=== PATIENT | male | born 1970 | race Caucasian/White ===

== ENCOUNTER 2020-11-03 13:05 | Observation (INO) | payer OTHER, MEDICAID, SELFPAY ==
[2020-11-03] VITALS (15 sets, daily range): BP systolic 138–191; BP diastolic 73–93; PULSE 74–113; RESP 13–22; TEMP 36.2–36.5; O2SAT 93–100; BMI 38.0
[2020-11-03 16:14] LABS: Add Manual Diff / Slide Review NO; Basophils Absolute Auto 100 /uL (0-100); Basophils Percent Auto 0.5 % (0-2); Eosinophils Absolute Auto 300 /uL (0-450); Eosinophils Percent Auto 2.8 % (2-4); Hematocrit 41.4 % (41-53); Hemoglobin 13.4 g/dL (13.5-17.5); Lymphocytes Absolute Auto 1600 /uL (1100-4500); Mean Corpuscular HGB Conc 32.4 % (30-36); Mean Corpuscular Hemoglobin 27.4 PG (26-34); Mean Corpuscular Volume 84.6 fL (80-100); Monocytes Absolute Auto 1000 /uL (0-900); Monocytes Percent Auto 8.2 % (3-14); Neutrophils Absolute Auto 8700 /uL (1500-7000); Neutrophils Percent Auto 74.5 % (50-75); Platelet Count 457 X10^3/uL (150-400); Red Blood Cell Count 4.89 X10^6/uL (4.5-5.9); Red Cell Distribution Width 12.7 % (11.6-14.8); White Blood Cell Count 11.7 X10^3/uL (4.5-11.0)
[2020-11-03 16:15] LABS: Lactate (Lactic Acid) 1.2 mmol/L (0.7-2.1)
[2020-11-03 16:17] LABS: Alanine Aminotransferase 78 IU/L (<50); Alkaline Phosphatase 297 U/L (38-126); Aspartate Aminotransferase 68 IU/L (17-59); BUN Creatinine Ratio 13.6 (6-22); Bilirubin Total 1.4 mg/dL (0.2-1.3); Blood Urea Nitrogen 14 mg/dL (9-20); Calcium 9.3 mg/dL (8.4-10.2); Carbon Dioxide 29 mmol/L (22-32); Chloride 105 mmol/L (98-107); Creatine Kinase 42 U/L (55-170); Estimated Glomerular Filt Rate > 60.0 mL/min (>60); Globulin 4.2 g/dL (1.7-4.1); Glucose 132 mg/dL (70-100); HEMOLYSIS < 15 (0-50); Potassium 4.3 mmol/L (3.4-5.1); Sodium 140 mmol/L (137-145); Total Protein 8.2 g/dL (6.3-8.2)
[2020-11-03 16:28] LABS: Troponin I < 0.012 ng/mL (0.01-0.034)
[2020-11-03 16:33] LABS: Procalcitonin 0.09 ng/mL (<0.5)
--- NOTE | 2020-11-03 18:16 | ED_ITS ---
HPI - Skin/Abscess/Foreign Bdy General Chief complaint: Skin/Abscess/Foreign Body Stated complaint: infection in leg Time Seen by Provider: 11/03/20 16:56 Source: patient Mode of arrival: Ambulatory Limitations: no limitations History of Present Illness HPI narrative: Patient is a 50-year-old male. Denies any prior medical issues. No prior surgeries. Is not taking any medications here for evaluation of what he states is a infection of his right leg. He states that all of the symptoms started approximately 1 month ago when he scraped the front of his right leg on some stairs while he was at work. Since that time he has had some redness in the area but he it has worsened recently and specifically over the past week. No fevers. He has not seen anybody about the symptoms prior to this. Related Data Home Medications Medication Instructions Recorded Confirmed No Known Home Medications 11/03/20 11/03/20 Allergies Allergy/AdvReac Type Severity Reaction Status Date / Time No Known Drug Allergies Allergy Verified 11/03/20 13:18 Review of Systems Constitutional Comments: Denies fevers Cardiovascular Cardiovascular: Reports system reviewed and no additional complaints, except as documented Respiratory Respiratory: Reports system reviewed and no additional complaints, except as documented Gastrointestinal Gastrointestinal: Reports system reviewed and no additional complaints, except as documented Genitourinary Genitourinary: Reports system reviewed and no additional complaints, except as documented Musculoskeletal Comments: Pain and right leg Integumentary/Breasts Comments: Redness drainage and swelling to right leg Neurologic Neurologic: Reports system reviewed and no additional complaints, except as documented Hematologic/Lymphatic On Anticoagulants: No Allergic/Immunologic Allergic/Immunologic: Reports system reviewed and no additional complaints, except as documented Patient History Medical History Hx of fracture of right hip Family History Mother Myocardial infarction Father Patient denies significant medical history Social History household members: family Smoking Status: Never smoker Smoking Status: Unknown if ever smoked alcohol intake frequency: holidays/special occasions only Substance Use Type: does not use Exam Initial Vital Signs Initial Vital Signs: Vital Signs Temperature 97.2 F L 11/03/20 13:18 Pulse Rate 113 H 11/03/20 13:18 Respiratory Rate 16 07/24/21 13:18 Blood Pressure 140/93 H 11/03/20 13:18 Pulse Oximetry 98 11/03/20 13:18 Const General: cooperative HENMT Head: normal to inspection and normocephalic Eyes General: appearance normal, both eyes and all related structures Resp Effort & Inspection: normal respiratory effort Cardio Rate: tachycardic Pulses: dorsalis pedis present on the right GI Inspection: normal to inspection Skin Other: Patient with redness to his right lower extremity from his knees down to his toes. Also has some ulcerations circumferentially. Does appear to be draining purulent material. He does have redness that streaks up the inside of his leg proximal to the knee. Neuro General: patient alert, patient awake, patient oriented x3 and moves all extremities Extrem General: normal to inspection and capillary refill normal Psych Appearance: grossly normal Course Orders Ordered: ED Orders 11/03/20 16:10 EKG-12 Lead Stat 11/03/20 16:35 Blood Culture Stat 11/03/20 18:18 XR tibia fibula RT 2V Stat 11/03/20 18:27 COVID19 - ADMIT ([employer] swab/PCR) Stat 11/03/20 19:37 CT LE RT w con Stat Acetaminophen (Acetaminophen 325 Mg Tablet) 650 mg PO Q6HR PRN PRN Reason: Fever/Mild Pain (1-3) Enoxaparin Sodium (Enoxaparin 40 Mg/0.4 Ml Syringe) 40 mg SUBCUT DAILY [facility] Sodium Chloride (Normal Saline 0.9%) 1,000 mls @ 125 mls/hr IV CONT [facility] Last Infusion: 11/03/20 20:53 Dose: 125 mls/hr Documented by: Infusion: 11/03/20 20:03 Dose: 0 mls/hr Documented by: Admin: 11/03/20 18:25 Dose: 125 mls/hr Documented by: MICHAEL Ampicillin Sodium/Sulbactam (Sodium 3 gm/ Sodium Chloride) 100 mls @ 100 mls/hr IV Q6H [facility] Last Admin: 11/04/20 00:29 Dose: 100 mls/hr Documented by: DEEPTHI Vancomycin HCl/Dextrose (Vancomycin) 2,000 mg in 400 mls @ 200 mls/hr IV Q12H [facility] Naloxone HCl (Naloxone 0.4 Mg/Ml Vial) 0.2 mg IV Q2MIN PRN PRN Reason: Opiate Reversal Ondansetron HCl (Ondansetron 4 Mg/2 Ml Inj) 4 mg IV Q8HR PRN PRN Reason: Nausea And Vomiting Vancomycin HCl (Vancomycin Per Pharmacy) 1 request MISC NOW ONE Stop: 11/03/20 23:49 Discontinued Medications Ceftriaxone Sodium 1,000 mg/ (Sodium Chloride) 100 mls @ 200 mls/hr IV NOW ONE Stop: 11/03/20 18:18 Last Infusion: 11/03/20 19:20 Dose: 0 mls/hr Documented by: Admin: 11/03/20 18:25 Dose: 200 mls/hr Documented by: MICHAEL Vancomycin HCl (Vancomycin) 1,000 mg in 200 mls @ 200 mls/hr IV NOW ONE Stop: 11/03/20 19:16 Last Admin: 11/03/20 22:26 Dose: Not Given Documented by: ARASELI Vancomycin HCl/Dextrose (Vancomycin) 2,000 mg in 400 mls @ 200 mls/hr IV NOW ONE Stop: 11/03/20 20:29 Last Infusion: 11/03/20 22:23 Dose: 200 mls/hr Documented by: Infusion: 11/03/20 20:53 Dose: 200 mls/hr Documented by: Infusion: 11/03/20 20:04 Dose: 0 mls/hr Documented by: Admin: 11/03/20 19:27 Dose: 200 mls/hr Documented by: VICK Vital Signs Vital signs: Vital Signs - 8 hr 11/03/20 17:30 11/03/20 17:59 11/03/20 18:00 Pulse Rate 77 99 H 94 H Respiratory Rate 21 13 14 Blood Pressure 138/77 140/74 Pulse Oximetry 97 99 99 11/03/20 18:30 11/03/20 19:00 11/03/20 19:30 Pulse Rate 91 H 88 89 Respiratory Rate 18 18 15 Blood Pressure 150/73 H 165/92 H 148/76 H Pulse Oximetry 99 98 97 MDM - Skin/Abscess/Foreign Bdy Lab Data Attestation: I reviewed the patient's lab results. Result diagrams: 11/03/20 15:53 11/03/20 15:53 Labs: Lab Results 11/03/20 11/03/20 11/03/20 Range/Units 15:53 15:53 15:53 WBC 11.7 H (4.5-11.0) X10^3/uL RBC 4.89 (4.5-5.9) X10^6/uL Hgb 13.4 L (13.5-17.5) g/dL Hct 41.4 (41-53) % MCV 84.6 (80-100) fL MCH 27.4 (26-34) PG MCHC 32.4 (30-36) % RDW 12.7 (11.6-14.8) % Plt Count 457 H (150-400) X10^3/uL Neut % (Auto) 74.5 (50-75) % Lymph % (Auto) 14.0 L (25-40) % [place] % (Auto) 8.2 (3-14) % Eos % (Auto) 2.8 (2-4) % Baso % (Auto) 0.5 (0-2) % Neut # (Auto) 8700 H (4156-2365) /uL Lymph # (Auto) 1600 (6947-1122) /uL [place] # (Auto) 1000 H (0-900) /uL Eos # (Auto) 300 (0-450) /uL Baso # (Auto) 100 (0-100) /uL Sodium 140 (137-145) mmol/L Potassium 4.3 (3.4-5.1) mmol/L Chloride 105 (98-107) mmol/L Carbon Dioxide 29 (22-32) mmol/L BUN 14 (9-20) mg/dL Creatinine 1.03 (0.66-1.25) mg/dL Estimated GFR > 60.0 (>60) mL/min BUN/Creatinine Ratio 13.6 (6-22) Glucose 132 H (70-100) mg/dL Hemoglobin A1c (4.0-6.0) % Lactate 1.2 (0.7-2.1) mmol/L Calcium 9.3 (8.4-10.2) mg/dL Total Bilirubin 1.4 H (0.2-1.3) mg/dL AST 68 H (17-59) IU/L ALT 78 H (<50) IU/L Alkaline Phosphatase 297 H (38-126) U/L Total Creatine Kinase 42 L (55-170) U/L CK-MB (CK-2) TNP CK-MB (CK-2) Rel Index TNP Troponin I < 0.012 (0.01-0.034) ng/mL Total Protein 8.2 (6.3-8.2) g/dL Albumin 4.0 (3.5-5.0) g/dL Globulin 4.2 H (1.7-4.1) g/dL Albumin/Globulin Ratio 1.0 (1.0-2.8) Procalcitonin 0.09 (<0.5) ng/mL SARS-CoV-2 (PCR) (Negative) 11/03/20 11/03/20 Range/Units 15:53 18:27 WBC (4.5-11.0) X10^3/uL RBC (4.5-5.9) X10^6/uL Hgb (13.5-17.5) g/dL Hct (41-53) % MCV (80-100) fL MCH (26-34) PG MCHC (30-36) % RDW (11.6-14.8) % Plt Count (150-400) X10^3/uL Neut % (Auto) (50-75) % Lymph % (Auto) (25-40) % [place] % (Auto) (3-14) % Eos % (Auto) (2-4) % Baso % (Auto) (0-2) % Neut # (Auto) (6004-4311) /uL Lymph # (Auto) (5819-5629) /uL [place] # (Auto) (0-900) /uL Eos # (Auto) (0-450) /uL Baso # (Auto) (0-100) /uL Sodium (137-145) mmol/L Potassium (3.4-5.1) mmol/L Chloride (98-107) mmol/L Carbon Dioxide (22-32) mmol/L BUN (9-20) mg/dL Creatinine (0.66-1.25) mg/dL Estimated GFR (>60) mL/min BUN/Creatinine Ratio (6-22) Glucose (70-100) mg/dL Hemoglobin A1c 5.6 (4.0-6.0) % Lactate (0.7-2.1) mmol/L Calcium (8.4-10.2) mg/dL Total Bilirubin (0.2-1.3) mg/dL AST (17-59) IU/L ALT (<50) IU/L Alkaline Phosphatase (38-126) U/L Total Creatine Kinase (55-170) U/L CK-MB (CK-2) CK-MB (CK-2) Rel Index Troponin I (0.01-0.034) ng/mL Total Protein (6.3-8.2) g/dL Albumin (3.5-5.0) g/dL Globulin (1.7-4.1) g/dL Albumin/Globulin Ratio (1.0-2.8) Procalcitonin (<0.5) ng/mL SARS-CoV-2 (PCR) Negative (Negative) Imaging Data CT LE: Radiologist's Impression: [address] [id number] Scan ReportSigned Patient: Jeffery José#: [id number]: 1970Acct:[id number]/Sex: 50 / MDate of Service: 11/03/20Loc: [id number] Number: [id number] Procedure: CT LE RT w con Ordering Provider: Jose Antonio Maldonado D.O. PROCEDURE: CT LE RT W CON INDICATIONS: cellulitis R distal LE eval for deep abscess TECHNIQUE: After the administration of intravenous contrast, axial sections acquired of the right leg, with coronal and sagittal reformats. COMPARISON: [facility], CR, XR TIBIA FIBULA RT 2V, 11/03/2020, 18:23. FINDINGS: Image quality: Excellent. Bones: No acute fracture or dislocation. No periosteal reaction seen. No suspicious osseous lesion. Small ossicles adjacent to the medial malleolus likely due to prior injury. Soft tissues: There is diffuse subcutaneous edema in the right leg. No soft tissue gas. No loculated fluid collection. Small suprapatellar joint effusion. IMPRESSION: No abscess. No soft tissue gas. Diffuse subcutaneous edema in the right leg. No acute osseous abnormality. Dictated by: Kamar Claudio M.D. on 11/03/2020 at 20:49 Approved by: Kamar Claudio M.D. on 11/03/2020 at 20:54 Extremity x-ray #1: Radiologist's Impression: [address] [id number] ReportSigned Patient: Jeffery José#: [id number]: 1970Acct:[id number]/Sex: 50 / MDate of Service: 11/03/20Loc: EDAccession Number: [id number] Procedure: XR tibia fibula RT 2V Ordering Provider: Jose Antonio Maldonado D.O. PROCEDURE: XR TIBIA FUBULA RT 2V INDICATIONS: cellulitis eval for free air TECHNIQUE: 4 views of the tibia and fibula were acquired. COMPARISON: None. FINDINGS: Bones: No fractures or dislocations. No periosteal reaction. Question of prior injury at the medial malleolus. No suspicious bony lesions. Soft tissues: No suspicious soft tissue calcifications or masses. No soft tissue gas is seen. Heterogeneous appearance of the calf soft tissues. IMPRESSION: No soft tissue air is seen. Heterogeneous appearance of the calf soft tissues likely due to edema. Dictated by: Kamar Claudio M.D. on 11/03/2020 at 19:37 Approved by: Kamar Claudio M.D. on 11/03/2020 at 19:39 ECG Data Attestation: I personally reviewed and interpreted this ECG as follows: Interpretation: Sinus rhythm Ventricular rate 92 Normal axis Normal QRS Normal QTC No ST T wave changes MDM Narrative Medical decision making narrative: Patient does have what appears to be cellu litis and superficial ulcerations to his right lower extremity from his knees down to his toes. He is neurovascularly intact. X-ray does not show any signs of free air. CT scan was ordered per request admitting provider. Does not show any deep abscess. He does have streaking on the inside of his leg. Patient was given antibiotics in the emergency department. Blood cultures were obtained. G jorien his presentation he does require admission to the hospital for IV antibiotics. Discussed the case with ADRIAN mack the [facility] provider who will admit for further evaluation and treatment. I did discuss the need for admission with the patient he expressed understanding and agreement. Discharge Plan Departure Patient Disposition: Admitted As Inpatient Clinical Impression: Cellulitis Admit Date/Time: 11/03/20 19:45 Admit Provider: Melba Mack
[2020-11-03] MEDS: cefTRIAXone 1,000 MG in SODIUM CHLORIDE 0.9% 100 ML 200 ML IV (18:25)
[2020-11-03] MEDS: SODIUM CHLORIDE 0.9% 1,000 ML 125 ML IV (18:25)
--- NOTE | 2020-11-03 18:52 | PC.NURSE ---
cleared for pt to have food and fluids
[2020-11-03] MEDS: VANCOMYCIN 2,000 MG/400 ML PIGGYBACK 200 MG IV (19:27)
--- NOTE | 2020-11-03 19:37 | DI.CT.S_ITS ---
PROCEDURE: CT LE RT W CON INDICATIONS: cellulitis R distal LE eval for deep abscess TECHNIQUE: After the administration of intravenous contrast, axial sections acquired of the right leg, with coronal and sagittal reformats. COMPARISON: [facility], CR, XR TIBIA FIBULA RT 2V, 11/03/2020, 18:23. FINDINGS: Image quality: Excellent. Bones: No acute fracture or dislocation. No periosteal reaction seen. No suspicious osseous lesion. Small ossicles adjacent to the medial malleolus likely due to prior injury. Soft tissues: There is diffuse subcutaneous edema in the right leg. No soft tissue gas. No loculated fluid collection. Small suprapatellar joint effusion. IMPRESSION: No abscess. No soft tissue gas. Diffuse subcutaneous edema in the right leg. No acute osseous abnormality. Dictated by: Kamar Claudio M.D. on 11/03/2020 at 20:49 Approved by: Kamar Claudio M.D. on 11/03/2020 at 20:54
[2020-11-03 19:42] LABS: COVID19 - ADMIT (NP swab/PCR) Negative (Negative)
--- NOTE | 2020-11-03 21:12 | PC.NURSE ---
Pt arrived from the ED @ 2009. Alert/oriented. Lungs clear, SpO2 100% RA Right lower extremity appears very reddened, swollen w/ scabby moist skin Pt denies discomfort at this time. IV ABO infusing. into LFA w/o incidence. Call light w/in reach, bed alarm on for pt safety. Continue w/plan of care.
--- NOTE | 2020-11-03 22:20 | DI.RAD.S_ITS ---
PROCEDURE: XR ANKLE RT 2V INDICATIONS: cellulitis, swelling TECHNIQUE: 2 views of the ankle were acquired. COMPARISON: [facility], CR, XR TIBIA FIBULA RT 2V, 11/03/2020, 18:23. [facility], CT, CT LE RT W CON, 11/03/2020, 19:46. FINDINGS: Bones: No keshia, acute fractures are seen. There is cortical irregularity of the distal medial tibia, with periosteal reaction. Age-appropriate bony degenerative changes are seen. The talar dome demonstrates no keshia abnormality. Incidental note is made of an accessory ossicle, an os peroneum. Soft tissues: Generalized soft tissue swelling and irregularity can be seen. IMPRESSION: Soft tissue swelling is seen, without keshia bony lysis. Periosteal reaction is seen involving the distal medial tibia. This is felt most likely to be related to remote fracture. If there is strong suspicion for developing osteomyelitis, please consider a dedicated MRI without and with contrast for further evaluation (assuming that there is no contraindication to MRI). Note: No significant discrepancy from the preliminary report. Of Dictated by: Michael De Oliveira M.D. on 11/04/2020 at 6:34 Approved by: Michael De Oliveira M.D. on 11/04/2020 at 6:37
--- NOTE | 2020-11-03 23:20 | P.HP_ITS ---
History of Present Illness History of Present Illness Date Patient Seen: 11/03/20 Time Patient Seen: 21:15 Chief complaint: infection in leg Narrative: Dmitriy José is a 50 y.o. obese male with no PCP and not taking any medications, presented to the ED with a one month long history of a wound that he sustained when he fell on the deck of his father's home. He allowed it to heal on it's own and states it has been waxing and waning. He has tried to use neosporin on his leg with minimal improvement. Denies fever, sweats or chills, nausea or vomiting, denies a personal or family history of diabetes, denies dysurea, diarrhea or constipation or numbing or tingling of his extremities. Xray of the tibia and follow-up CT were negative for abscess. He was initiated on IV ceftriaxone and vancomycin in the ED. patient is afebrile, blood pressure is 142/83, heart rate 99, respiratory rate 18, oxygen saturation 93% on room air, he weighs 126 kg with a BMI of 38. His WBC is slightly elevated at 11.7, hemoglobin 13.4, platelet count 457, does have a left shift of 8700 neutrophils glucose is 132, liver enzymes are elevated with the total bilirubin of 1.4, AST 68, ALT 78, alk-phos 297, procalcitonin is negative for infection and COVID 19 PCR is negative. Patient History Medical History Hx of fracture of right hip Family & Social History Family History Mother Myocardial infarction Father Patient denies significant medical history Social History: household members family Prior Living Arrangements House Safety & Behavioral: Feels Safe in Current Yes Environment Been Physically Hurt or No Threatened By a Person Suicidal Ideation Description None Suicide Plan Description No Plan Tobacco & Substance use: Smoking Status Never smoker alcohol intake frequency holiday/special occasion Substance Use Type does not use Meds Home Medications and Allergies Home Medications Medication Instructions Recorded Confirmed Type No Known Home Medications 11/03/20 11/03/20 History Allergies Allergy/AdvReac Type Severity Reaction Status Date / Time No Known Drug Allergies Allergy Verified 11/03/20 13:18 Review of Systems Review of Systems ROS: Yes All systems reviewed with the patient and are negative except as otherwise documented Exam Vital Signs (past 8 hours): - 11/03/20 15:41 11/03/20 16:00 11/03/20 16:02 Temperature Pulse Rate 74 98 H 100 H Respiratory Rate Blood Pressure 150/75 H Pulse Oximetry 98 97 97 11/03/20 16:30 11/03/20 17:00 11/03/20 17:30 Temperature Pulse Rate 90 81 77 Respiratory Rate 13 22 21 Blood Pressure Pulse Oximetry 97 97 11/03/20 17:59 11/03/20 18:00 11/03/20 18:30 Temperature Pulse Rate 99 H 94 H 91 H Respiratory Rate 13 14 18 Blood Pressure 138/77 140/74 150/73 H Pulse Oximetry 99 99 99 11/03/20 19:00 11/03/20 19:30 11/03/20 19:59 Temperature Pulse Rate 88 89 104 H Respiratory Rate 18 15 Blood Pressure 165/92 H 148/76 H 191/90 H Pulse Oximetry 98 97 100 11/03/20 20:00 11/03/20 20:10 Temperature 97.7 F Pulse Rate 96 H 99 H Respiratory Rate 18 Blood Pressure 142/83 H Pulse Oximetry 100 93 Oxygen Delivery Method Room Air Narrative Exam Narrative: Gen: Alert, oriented, obese 50 y.o. male, NAD HEENT: normocephalic, atraumatic, conjunctiva clear, sclera non-icteric, oral mucosa pink and moist Neck: supple, full ROM, no JVD, trachea is midline Resp: Lungs CTA, non-labored breathing CV: RRR, no murmur or rubs Abd: soft, non-tender, normoactive BTs Skin: Right leg with what appears to be a candidal infection and superimposed exudative ulcerations with yellow-green deposits on the right lower leg, ankle and foot are swollen. Left leg with what appears to be scarring from prior infection. Neuro: Alert and oriented X 4 w/no focal deficits. Speech clear and coherent. Extremities: moves all 4 extremities, is ambulatory, negative Rowan?s sign Psyche: evasive. Objective Labs Result Diagrams: 11/03/20 15:53 11/03/20 15:53 Labs: Laboratory Results - last 24 hr 11/03/20 11/03/20 11/03/20 15:53 15:53 15:53 WBC 11.7 H RBC 4.89 Hgb 13.4 L Hct 41.4 MCV 84.6 MCH 27.4 MCHC 32.4 RDW 12.7 Plt Count 457 H Neut % (Auto) 74.5 Lymph % (Auto) 14.0 L [place] % (Auto) 8.2 Eos % (Auto) 2.8 Baso % (Auto) 0.5 Neut # (Auto) 8700 H Lymph # (Auto) 1600 [place] # (Auto) 1000 H Eos # (Auto) 300 Baso # (Auto) 100 Sodium 140 Potassium 4.3 Chloride 105 Carbon Dioxide 29 BUN 14 Creatinine 1.03 Estimated GFR > 60.0 BUN/Creatinine Ratio 13.6 Glucose 132 H Lactate 1.2 Calcium 9.3 Total Bilirubin 1.4 H AST 68 H ALT 78 H Alkaline Phosphatase 297 H Total Creatine Kinase 42 L CK-MB (CK-2) TNP CK-MB (CK-2) Rel Index TNP Troponin I < 0.012 Total Protein 8.2 Albumin 4.0 Globulin 4.2 H Albumin/Globulin Ratio 1.0 Procalcitonin 0.09 SARS-CoV-2 (PCR) 11/03/20 18:27 WBC RBC Hgb Hct MCV MCH MCHC RDW Plt Count Neut % (Auto) Lymph % (Auto) [place] % (Auto) Eos % (Auto) Baso % (Auto) Neut # (Auto) Lymph # (Auto) [place] # (Auto) Eos # (Auto) Baso # (Auto) Sodium Potassium Chloride Carbon Dioxide BUN Creatinine Estimated GFR BUN/Creatinine Ratio Glucose Lactate Calcium Total Bilirubin AST ALT Alkaline Phosphatase Total Creatine Kinase CK-MB (CK-2) CK-MB (CK-2) Rel Index Troponin I Total Protein Albumin Globulin Albumin/Globulin Ratio Procalcitonin SARS-CoV-2 (PCR) Negative Assessment & Plan Assessment & Plan narrative: Dmitriy José will be admitted to the inpatient service for further treatment and management of what appears to be a recurrent cellulitis of the right leg. 1. Cellulitis of the right lower leg, acute and present on admission * Patient is initiated on IV ampicillin/sulbactam and IV vanco dosed per pharmacy * Blood and wound cultures are pending 2. Elevated transaminases, unknown if chronic, present on admission * Acute liver panel pending 3. Elevated glucose in the setting of high BMI obesity * A1c pending VTE Prophylaxis: Wells risk score 0 Enoxaparin 40 mg subQ once daily Patient is admitted to the inpatient service due to the severity of disease, risks of further disease progression and this stay is expected to exceed 2 midnights. FEN: IV fluids: saline lock, diet:general diet, labs: CBC, C/BMP, Mag, PT/INR Code status: Full code as discussed with the patient who identifies father, Esthela José who is also their surrogate and POA. I have utilized all available resources (patient, family member, internal and external medical records) at the time of admission to identify the patient?s current home medications that should be continued or held. COVID-19 COVID-19 status: Negative Result date/Date tested (Pos, Neg/Pending): 11/04/20 Scores Wells' Criteria for PE Clinical signs and symptoms of DVT: No PE is #1 Dx or equally likely: No Heart rate > 100: No Immobilization at least 3 days or surg in previous 4 weeks: No History of PE or DVT: No Hemoptysis: No Malignancy w/Treatment within 6 months or palliative: No Wells' PE Score total: 0 Quality VTE Deep Vein Thrombosis/Pulmonary Embolism Present on Admission: No MIPS - Admit I confirm the patient?s Advance Care Plan is present, Code status is documented, Surrogate decision maker is in patient?s record [If Yes, STOP here]: Yes
[2020-11-04] VITALS (7 sets, daily range): BP systolic 112–137; BP diastolic 54–83; PULSE 66–92; RESP 16–20; TEMP 36.1–37.2; O2SAT 93–99
[2020-11-04 00:04] LABS: Hemoglobin A1C% w Est Avg Glu 5.6 % (4.0-6.0)
[2020-11-04] MEDS: AMPICILLIN/SULBACTAM 3 GM 3 GM in SODIUM CHLORIDE 0.9% 100 ML IV ×5 (00:29→23:52)
[2020-11-04 05:48] LABS: Add Manual Diff / Slide Review NO; Basophils Absolute Auto 100 /uL (0-100); Basophils Percent Auto 0.6 % (0-2); Eosinophils Absolute Auto 200 /uL (0-450); Eosinophils Percent Auto 1.8 % (2-4); Hemoglobin 12.5 g/dL (13.5-17.5); Lymphocytes Absolute Auto 1200 /uL (1100-4500); Lymphocytes Percent Auto 11.1 % (25-40); Mean Corpuscular HGB Conc 32.8 % (30-36); Mean Corpuscular Hemoglobin 27.3 PG (26-34); Mean Corpuscular Volume 83.2 fL (80-100); Monocytes Absolute Auto 700 /uL (0-900); Monocytes Percent Auto 6.7 % (3-14); Neutrophils Absolute Auto 8900 /uL (1500-7000); Neutrophils Percent Auto 79.8 % (50-75); Platelet Count 429 X10^3/uL (150-400); Red Blood Cell Count 4.57 X10^6/uL (4.5-5.9); Red Cell Distribution Width 12.9 % (11.6-14.8); White Blood Cell Count 11.2 X10^3/uL (4.5-11.0)
[2020-11-04 05:59] LABS: Alanine Aminotransferase 48 IU/L (<50); Albumin 3.2 g/dL (3.5-5.0); Albumin Globulin Ratio 0.9 (1.0-2.8); Alkaline Phosphatase 229 U/L (38-126); Aspartate Aminotransferase 34 IU/L (17-59); BUN Creatinine Ratio 13.3 (6-22); Bilirubin Total 1.3 mg/dL (0.2-1.3); Bilirubin Unconjugated 1.2 mg/dL (0.0-1.1); Blood Urea Nitrogen 10 mg/dL (9-20); Calcium 8.6 mg/dL (8.4-10.2); Carbon Dioxide 26 mmol/L (22-32); Chloride 107 mmol/L (98-107); Estimated Glomerular Filt Rate > 60.0 mL/min (>60); Globulin 3.5 g/dL (1.7-4.1); Glucose 117 mg/dL (70-100); HEMOLYSIS < 15 (0-50); Potassium 4.3 mmol/L (3.4-5.1); Sodium 137 mmol/L (137-145); Total Protein 6.7 g/dL (6.3-8.2)
[2020-11-04] MEDS: SODIUM CHLORIDE 0.9% 1,000 ML 125 ML IV (06:02)
[2020-11-04] MEDS: VANCOMYCIN 1,500 MG/300 ML PIGGYBACK 200 MG IV ×2 (07:04→14:36)
[2020-11-04] MEDS: HYDROCODONE/ACET 5/325 TABLET 1 TAB PO ×3 (08:07→23:51)
[2020-11-04] MEDS: ENOXAPARIN 40 MG/0.4 ML SYRINGE SUBCUT (08:07)
--- NOTE | 2020-11-04 12:15 | P.PN_ITS ---
Subjective Subjective Date Patient Seen: 11/04/20 Time Patient Seen: 12:16 Interval history: This is a 50 year old male admitted with RLE cellulitis. He reports swelling is improving, and pain is currently controlled. He denies fever, chills, abdominal pain, nausea, or vomiting. Culture from the ER growing a Group A strep. If MRSA swab negative today will stop vancomycin. Exam Vital Signs (past 8 hours): - 11/04/20 10:00 11/04/20 11:00 Temperature 96.9 F L Pulse Rate 66 Respiratory Rate 20 Blood Pressure 137/71 Pulse Oximetry 99 93 Oxygen Delivery Method Room Air Oxygen Flow Rate 0 Narrative Exam Narrative: Gen: Alert, oriented, obese 50 y.o. male, NAD HEENT: normocephalic, atraumatic, conjunctiva clear, sclera non-icteric, oral mucosa pink and moist Neck: supple, full ROM, no JVD, trachea is midline Resp: Lungs CTA, non-labored breathing CV: RRR, no murmur or rubs Abd: soft, non-tender, normoactive BTs Skin: right lower extremity cellulitis, cirumferential around calf, with weeping superficial draining superficial lesions. mildly tender. Reportedly improving. Neuro: Alert and oriented X 4 w/no focal deficits. Speech clear and coherent. Extremities: moves all 4 extremities. RLE edema 1+ pitting. No LLE edema. Psyche: evasive. Objective Labs Result Diagrams: 11/04/20 05:37 11/04/20 05:37 Labs: Laboratory Results - last 24 hr 11/03/20 11/03/20 11/03/20 15:53 15:53 15:53 WBC 11.7 H RBC 4.89 Hgb 13.4 L Hct 41.4 MCV 84.6 MCH 27.4 MCHC 32.4 RDW 12.7 Plt Count 457 H Neut % (Auto) 74.5 Lymph % (Auto) 14.0 L [place] % (Auto) 8.2 Eos % (Auto) 2.8 Baso % (Auto) 0.5 Neut # (Auto) 8700 H Lymph # (Auto) 1600 [place] # (Auto) 1000 H Eos # (Auto) 300 Baso # (Auto) 100 Sodium 140 Potassium 4.3 Chloride 105 Carbon Dioxide 29 BUN 14 Creatinine 1.03 Estimated GFR > 60.0 BUN/Creatinine Ratio 13.6 Glucose 132 H Hemoglobin A1c Lactate 1.2 Calcium 9.3 Magnesium Total Bilirubin 1.4 H Conjugated Bilirubin Unconjugated Bilirubin AST 68 H ALT 78 H Alkaline Phosphatase 297 H Total Creatine Kinase 42 L CK-MB (CK-2) TNP CK-MB (CK-2) Rel Index TNP Troponin I < 0.012 Total Protein 8.2 Albumin 4.0 Globulin 4.2 H Albumin/Globulin Ratio 1.0 Procalcitonin 0.09 SARS-CoV-2 (PCR) 11/03/20 11/03/20 11/04/20 15:53 18:27 05:37 WBC 11.2 H RBC 4.57 Hgb 12.5 L Hct 38.0 L MCV 83.2 MCH 27.3 MCHC 32.8 RDW 12.9 Plt Count 429 H Neut % (Auto) 79.8 H Lymph % (Auto) 11.1 L [place] % (Auto) 6.7 Eos % (Auto) 1.8 L Baso % (Auto) 0.6 Neut # (Auto) 8900 H Lymph # (Auto) 1200 [place] # (Auto) 700 Eos # (Auto) 200 Baso # (Auto) 100 Sodium Potassium Chloride Carbon Dioxide BUN Creatinine Estimated GFR BUN/Creatinine Ratio Glucose Hemoglobin A1c 5.6 Lactate Calcium Magnesium Total Bilirubin Conjugated Bilirubin Unconjugated Bilirubin AST ALT Alkaline Phosphatase Total Creatine Kinase CK-MB (CK-2) CK-MB (CK-2) Rel Index Troponin I Total Protein Albumin Globulin Albumin/Globulin Ratio Procalcitonin SARS-CoV-2 (PCR) Negative 11/04/20 05:37 WBC RBC Hgb Hct MCV MCH MCHC RDW Plt Count Neut % (Auto) Lymph % (Auto) [place] % (Auto) Eos % (Auto) Baso % (Auto) Neut # (Auto) Lymph # (Auto) [place] # (Auto) Eos # (Auto) Baso # (Auto) Sodium 137 Potassium 4.3 Chloride 107 Carbon Dioxide 26 BUN 10 Creatinine 0.75 Estimated GFR > 60.0 BUN/Creatinine Ratio 13.3 Glucose 117 H Hemoglobin A1c Lactate Calcium 8.6 Magnesium 2.0 Total Bilirubin 1.3 Conjugated Bilirubin 0.0 Unconjugated Bilirubin 1.2 H AST 34 ALT 48 Alkaline Phosphatase 229 H Total Creatine Kinase CK-MB (CK-2) CK-MB (CK-2) Rel Index Troponin I Total Protein 6.7 Albumin 3.2 L Globulin 3.5 Albumin/Globulin Ratio 0.9 L Procalcitonin SARS-CoV-2 (PCR) PFSH Medical History Hx of fracture of right hip Family History Mother Myocardial infarction Father Patient denies significant medical history Social History household members: family Smoking Status: Never smoker Assessment & Plan Assessment & Plan narrative: This is a 50 year old male admitted with RLE cellulitis. 1. Cellulitis of the right lower leg, acute and present on admission - given improvement, continue unasyn for now. Culture with Group A strep from wound. If MRSA swab is negative can discontinue vancomycin. - still with significant RLE swelling, will check US to r/o confounding DVT - check ESR, unlikely osteomyelitis in RLE given exam and improvement, however if >50 consider MRI imaging. 2. Elevated transaminases, acute, present on admission, resolved hepatitis serologies ordered for tomorrow, improved values today. 3. Prediabetes, obesity with BMI 37.4 - A1c 5.6%. Obesity likely contributing towards LE edema and risk for cellulitis. Code status: Full code as discussed with the patient who identifies father, Esthela José who is also their surrogate and POA. I have utilized all available resources (patient, family member, internal and external medical records) at the time of admission to identify the patient?s current home medications that should be continued or held. COVID-19 COVID-19 status: Negative Result date/Date tested (Pos, Neg/Pending): 11/04/20 Quality VTE Deep Vein Thrombosis/Pulmonary Embolism Present on Admission: No
--- NOTE | 2020-11-04 12:17 | DI.US.S_ITS ---
PROCEDURE: US PERIPH VENOUS LOW EXTREM RT INDICATIONS: Lower extremity soft tissue swelling, clinical concern for DEEP VEIN THROMBOSIS TECHNIQUE: Real-time imaging, as well as color and pulse Doppler interrogation, were performed of the lower extremity deep veins from the inguinal ligament to the popliteal fossa. COMPARISON: [facility], CR, XR ANKLE RT 2V, 11/03/2020, 22:27. [facility], CT, CT LE RT W CON, 11/03/2020, 19:46. [facility], CR, XR TIBIA FIBULA RT 2V, 11/03/2020, 18:23. FINDINGS: The common femoral, femoral and popliteal veins are normally compressible, and free of intraluminal thrombus. Color and pulse Doppler demonstrate normal phasic intraluminal flow. There is normal augmentation response to distal compression maneuver. An enlarged, hypervascular right groin lymph node is seen measuring 6.5 x 3.9 x 1.8 cm. IMPRESSION: Negative for deep venous thrombosis. Enlarged right groin lymph node. Dictated by: Michael De Oliveira M.D. on 11/04/2020 at 16:23 Approved by: Michael De Oliveira M.D. on 11/04/2020 at 16:24
--- NOTE | 2020-11-04 12:42 | PC.NURSE ---
Day note: Received call from lab regarding Wound Cx result, notified Dr. Garcia. Clarified isolation, per Dr. 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
[2020-11-04] MEDS: SODIUM CHLORIDE 0.9% FLUSH 10 ML IV (23:50)
[2020-11-05 00:02] VITALS: O2SAT 98
[2020-11-05] MEDS: AMPICILLIN/SULBACTAM 3 GM 3 GM in SODIUM CHLORIDE 0.9% 100 ML IV (05:12)
[2020-11-05] MEDS: SODIUM CHLORIDE 0.9% FLUSH 10 ML IV ×2 (05:12→08:10)
[2020-11-05 07:30] VITALS: O2SAT 98
[2020-11-05 07:45] VITALS: BP 132/92; PULSE 77; RESP 17; TEMP 36.6; O2SAT 98
[2020-11-05] MEDS: ENOXAPARIN 40 MG/0.4 ML SYRINGE SUBCUT (08:10)
[2020-11-05 08:41] LABS: Add Manual Diff / Slide Review NO; Basophils Absolute Auto 100 /uL (0-100); Eosinophils Absolute Auto 300 /uL (0-450); Eosinophils Percent Auto 3.1 % (2-4); Hematocrit 37.7 % (41-53); Hemoglobin 12.2 g/dL (13.5-17.5); Lymphocytes Absolute Auto 1500 /uL (1100-4500); Mean Corpuscular HGB Conc 32.5 % (30-36); Mean Corpuscular Hemoglobin 27.1 PG (26-34); Mean Corpuscular Volume 83.4 fL (80-100); Monocytes Absolute Auto 600 /uL (0-900); Monocytes Percent Auto 6.3 % (3-14); Neutrophils Absolute Auto 7500 /uL (1500-7000); Neutrophils Percent Auto 74.6 % (50-75); Platelet Count 430 X10^3/uL (150-400); Red Blood Cell Count 4.52 X10^6/uL (4.5-5.9); Red Cell Distribution Width 12.9 % (11.6-14.8)
--- NOTE | 2020-11-05 08:46 | CM.DANOTE ---
Addendum entered by Milana Oconnell R.N. 11/05/20 10:35: Patient is discharging home today, he will be driving himself. Went ahead and gave patient a Medicaid Application, and also gave him a Megan Application. Encouraged him to complete it and bring it by the billing office. Emailed the admission change group and let them know that this patient is discharging today, and that applications were already given to patient. Patient will have his prescription sent over to [facility] here in [place], for his p.o. antibiotic. Addendum entered by Milana Oconnell R.N. 11/05/20 10:16: Discussed patient during team rounds this morning. Patient may possibly discharge home today with p.o. antibiotic, Augmentin, as patient is uninsured, and has no current provider. Original Note: DCP: Case received, EMR reviewed and met with patient. Introduced self and role. Was able to obtain information from patient regarding his baseline activity status, as well as his current living situation prior to hospitalization. DCP assessment completed with information currently available. Patient is a 50 year old male who admitted on 11/03 in the pm, to the care of the hospitalist team. PCP: None Payer: None. Patient came to the hospital via private vehicle secondary to having some redness to his right leg. He currently holds diagnosis of cellulitis. According to nurseTiffani, patient is negative for DVT. He is currently getting IV Unisyn, he had origially been on Vancomycin. Patient was also negative for MRSA. According to notes, patient had scaped his leg on some stairs originally, when employed. Spoke to patient in his room. He is alert and oriented, flat effect. Asked him if he was insured, and he denied. He also stated and confirmed that he is unemployed. He stated that he does reside here in [place], and is independent. He stated that he lives alone. Asked him if admission counselor had seen him regarding Medicaid margot, or megan application. Stated that he had not seen anyone yet. Also asked him if he would be able to pay for his antibiotic when discharged, as he most likely will discharge on oral, and he stated, he should be able to. P: DCP to continue to be available for resources. Sent an email to admission change group counselors regarding Medicaid margot/Megan Margot. Milana Oconnell RN/Home Theater Experience Expert
[2020-11-05 08:57] LABS: Alanine Aminotransferase 44 IU/L (<50); Albumin 3.1 g/dL (3.5-5.0); Albumin Globulin Ratio 0.9 (1.0-2.8); Alkaline Phosphatase 211 U/L (38-126); Aspartate Aminotransferase 44 IU/L (17-59); BUN Creatinine Ratio 12.5 (6-22); Bilirubin Total 0.9 mg/dL (0.2-1.3); Bilirubin Unconjugated 0.6 mg/dL (0.0-1.1); Blood Urea Nitrogen 9 mg/dL (9-20); Calcium 8.4 mg/dL (8.4-10.2); Carbon Dioxide 30 mmol/L (22-32); Chloride 105 mmol/L (98-107); Estimated Glomerular Filt Rate > 60.0 mL/min (>60); Globulin 3.6 g/dL (1.7-4.1); Glucose 96 mg/dL (70-100); HEMOLYSIS < 15 (0-50); Potassium 4.1 mmol/L (3.4-5.1); Sodium 137 mmol/L (137-145); Total Protein 6.7 g/dL (6.3-8.2)
[2020-11-05 09:03] LABS: Erythrocyte Sedimentation Rate 70 MM/HR (0-15)
--- NOTE | 2020-11-05 10:10 | P.DS_ITS ---
History of Present Illness History of Present Illness Date Patient Seen: 11/05/20 Time Patient Seen: 10:10 Chief complaint: infection in leg Narrative: Per HARRY Fallon: Dmitriy José is a 50 y.o. obese male with no PCP and not taking any medications, presented to the ED with a one month long history of a wound that he sustained when he fell on the deck of his father's home. He allowed it to heal on it's own and states it has been waxing and waning. He has tried to use neosporin on his leg with minimal improvement. Denies fever, sweats or chills, nausea or vomiting, denies a personal or family history of diabetes, denies dysurea, diarrhea or constipation or numbing or tingling of his extremities. Xray of the tibia and follow-up CT were negative for abscess. He was initiated on IV ceftriaxone and vancomycin in the ED. patient is afebrile, blood pressure is 142/83, heart rate 99, respiratory rate 18, oxygen saturation 93% on room air, he weighs 126 kg with a BMI of 38. His WBC is slightly elevated at 11.7, hemoglobin 13.4, platelet count 457, does have a left shift of 8700 neutrophils glucose is 132, liver enzymes are elevated with the total bilirubin of 1.4, AST 68, ALT 78, alk-phos 297, procalcitonin is negative for infection and COVID 19 PCR is negative. Discharge Providers Provider Date of admission: 11/03/20 19:45 Discharge Date: 11/05/20 Consults: 11/03/20 23:28 Consult to Ostomy Specialist Routine Comment: Wound care nursing Consulting Provider: Discharge provider: Carlos Garcia DO Summary Hospital Course Discharge Diagnosis: Please see hospital course by problem list noted below. Hospital Course: This is a 50 year old male admitted with RLE cellulitis, improved with IV antibiotic therapy. 1. Cellulitis of the right lower leg, acute and present on admission - patient had improvement with unasyn. Initially on vancomycin however negative MRSA swab and culture with group A strep. Patient discharged on oral cephalo sporin for an additional 10 days on discharge. - DVT study negative, but did note lymph node as discussed below. - ESR at 70, however given rapid improvement in erythema and initial imaging MRI was not persued given low risk for osteomyelitis at this time. If reinfection occurs would recommend evaluation with MRI. 2. Elevated transaminases, acute, present on admission, resolved hepatitis serologies still pending on discharge, recommend outpatient follow up. 3. Prediabetes, obesity with BMI 37.4 - A1c 5.6%. Obesity likely contributing towards LE edema and risk for cellulitis. 4. RLE lymph node - DVT study negative but ultrasound did show a hypervascular lymph node. Recommend outpatient follow up after treatment of cellulitis for possible repeat dedicated imaging and possible referral for biopsy.1 Exam Vital Signs (past 8 hours): - 11/05/20 07:30 11/05/20 07:45 Temperature 97.9 F Pulse Rate 77 Respiratory Rate 17 Blood Pressure 132/92 H Pulse Oximetry 98 98 Oxygen Delivery Method Room Air Oxygen Flow Rate 0 Narrative Exam Narrative: Gen: Alert, oriented, obese 50 y.o. male, NAD HEENT: normocephalic, atraumatic, conjunctiva clear, sclera non-icteric, oral mucosa pink and moist Neck: supple, full ROM, no JVD, trachea is midline Resp: Lungs CTA, non-labored breathing CV: RRR, no murmur or rubs Abd: soft, non-tender, normoactive BTs Skin: right lower extremity cellulitis, cirumferential around calf, with weeping superficial draining superficial lesions. non-tender. Much improved and much more pinkish today compared to red. Neuro: Alert and oriented X 4 w/no focal deficits. Speech clear and coherent. Extremities: moves all 4 extremities. RLE edema 1+ pitting. No LLE edema. Psyche: evasive. Objective Labs Result Diagrams: 11/05/20 08:17 11/05/20 08:17 Labs: Laboratory Results - last 24 hr 11/04/20 11/05/20 11/05/20 11:55 08:17 08:17 WBC 10.0 RBC 4.52 Hgb 12.2 L Hct 37.7 L MCV 83.4 MCH 27.1 MCHC 32.5 RDW 12.9 Plt Count 430 H Neut % (Auto) 74.6 Lymph % (Auto) 15.0 L [place] % (Auto) 6.3 Eos % (Auto) 3.1 Baso % (Auto) 1.0 Neut # (Auto) 7500 H Lymph # (Auto) 1500 [place] # (Auto) 600 Eos # (Auto) 300 Baso # (Auto) 100 ESR Sodium 137 Potassium 4.1 Chloride 105 Carbon Dioxide 30 BUN 9 Creatinine 0.72 Estimated GFR > 60.0 BUN/Creatinine Ratio 12.5 Glucose 96 Calcium 8.4 Magnesium 2.0 Total Bilirubin 0.9 Conjugated Bilirubin 0.0 Unconjugated Bilirubin 0.6 AST 44 ALT 44 Alkaline Phosphatase 211 H Total Protein 6.7 Albumin 3.1 L Globulin 3.6 Albumin/Globulin Ratio 0.9 L Nasal Screen MRSA (PCR) Negative for mrsa 11/05/20 08:17 WBC RBC Hgb Hct MCV MCH MCHC RDW Plt Count Neut % (Auto) Lymph % (Auto) [place] % (Auto) Eos % (Auto) Baso % (Auto) Neut # (Auto) Lymph # (Auto) [place] # (Auto) Eos # (Auto) Baso # (Auto) ESR 70 H Sodium Potassium Chloride Carbon Dioxide BUN Creatinine Estimated GFR BUN/Creatinine Ratio Glucose Calcium Magnesium Total Bilirubin Conjugated Bilirubin Unconjugated Bilirubin AST ALT Alkaline Phosphatase Total Protein Albumin Globulin Albumin/Globulin Ratio Nasal Screen MRSA (PCR) PFSH Medical History Hx of fracture of right hip Family History Mother Myocardial infarction Father Patient denies significant medical history Discharge Plan Discharge Plan Patient Disposition: Home Provider Discharge Comment: you were admitted to the hospital with cellulitis. Quickly improved with IV antibiotics. Please complete full course of antibiotics prescribed. Please return for evaluation if cellulitis returns. Recommend PCP visit, do not forget about the enlarged lymph node found on ultrasound which should be re-evaluated after treatment for your cellulitis. Discharge orders & Medications Prescriptions: New cefadroxil 500 mg capsule 500 mg PO BID 10 Days Qty: 20 RF: 0 Diet/Activity/Treatments Diet: Diet as Tolerated Activity: As tolerated Visit Report/Discharge Packet Instructions: DI for Cellulitis -- Adult, Cefadroxil Discharge Data Attending Provider: Melba Bergeron VTE Deep Vein Thrombosis/Pulmonary Embolism Present on Admission: No
--- NOTE | 2020-11-05 11:00 | CM.DANOTE ---
Patient discharge to home. All belongings returned to patient and discharge instructions/education given to patient. Prescription sent to [facility], patient verbalized understanding and education provided on antibiotic. Patient ambulated, per request, with [employer] to personal vehicle. Denied any further questions and verbalized understanding of discharge instructions/education.
[2020-11-05 17:25] LABS: Hepatitis B Surface Antigen NEGATIVE s/c (NEGATIVE)
[2020-11-05 17:29] LABS: Hep C Virus Ab w/Reflex Quant NEGATIVE s/c (NEGATIVE)
[2020-11-06 08:16] LABS: Hepatitis B Core Antibody Negative (Negative); Hepatitis B Surf Ab Qualitativ Non Reactive (.)
== END 2020-11-05 10:59 | disposition home or self-care (01) ==
LOC: ED 19:38 → AC 11-04 10:09
PROVIDERS: Emergency Medicine; Internal Medicine; Admitting Provider Nurse Practitioner Family; Emergency Provider Emergency Medicine; Referring Provider Emergency Medicine; Visit Provider Nurse Practitioner Family
DX: L03.115 Cellulitis of right lower limb (principal); R74.01 Elevation of levels of liver transaminase levels; R73.9 Hyperglycemia, unspecified; E66.9 Obesity, unspecified; Z68.37 Body mass index [BMI] 37.0-37.9, adult; Z20.822 Contact with and (suspected) exposure to COVID-19
CPT/HCPCS: 36415; 73590; 73600; 73701; 80048; 80053; 80076; 82550; 83036; 83605; 83735; 84145; 84484; 85025; 85651; 86704; 86706; 86803; 87040; 87070; 87075; 87077; 87147; 87186; 87205; 87340; 87635; 87797; 93005; 93010; 93971; 96365; 96366; 96367; 96372; 99284; C9803; G0378; J0295; J0696; J1650; Q9967